=== PATIENT | female | born 1995 | race Caucasian/White ===

== ENCOUNTER 2024-09-22 01:09 | Emergency (ER) | payer BC, MEDICAID ==
[~2024-09-22] VITALS: Ht 154.9 cm; Wt 65.2 kg
[2024-09-22 01:50] VITALS: O2SAT 100
[2024-09-22] MEDS ORDERED: ACETAMINOPHEN 500MG TABLET PO ONE (02:30)
[2024-09-22 02:52] LABS: BASOPHILS % 0.3 % (0.0-2.0); EOSINOPHILS % 0.6 % (0.0-5.0); HEMATOCRIT. 39.8 % (36.0-48.0); HEMOGLOBIN. 13.5 g/dL (12.0-16.0); LYMPHOCYTES % 25.1 % (20.0-50.0); MEAN PLATELET VOLUME 9.0 fl (7.4-10.4); MONOCYTES % 8.8 % (2.0-8.0); NEUTROPHILS % 65.2 % (40.0-76.0); PLATELET 222 x1000/uL (130-400); RED BLOOD CELL COUNT 4.62 mill/uL (4.2-5.4); RED CELL DISTRIBUTION WIDTH 12.8 % (11.6-14.6)
[2024-09-22 03:06] LABS: CREATININE 1.0 mg/dL (0.6-1.0); UREA NITROGEN BLOOD 18 mg/dL (9-23)
[2024-09-22 03:07] LABS: B-HCG QUANTITATIVE 217 mIU/mL (<6)
[2024-09-22 03:08] LABS: ASPARTATE AMINOTRANSFERASE 15 IU/L (<34); BILIRUBIN DIRECT 0.1 mg/dL (<=3.0)
[2024-09-22 03:09] LABS: BILIRUBIN TOTAL 0.5 mg/dL (0.1-1.0); PROTEIN TOTAL 7.3 g/dL (6.0-8.3)
[2024-09-22] MEDS ORDERED: TOPUD MT (04:28)
[2024-09-22 04:41] LABS: CLARITY URINE CLEAR (CLEAR); COLOR URINE YELLOW (YELLOW); GLUCOSE URINE NEGATIVE (NEGATIVE); KETONES URINE NEGATIVE (NEGATIVE); LEUKOCYTE ESTERASE URINE NEGATIVE (NEGATIVE); NITRITE URINE NEGATIVE (NEGATIVE); OCCULT BLOOD URINE 3+ (NEGATIVE); PH URINE 5.5 (4.5-8.0); PROTEIN URINE TRACE (NEGATIVE); SPECIFIC GRAVITY URINE 1.030 (1.005-1.030); UROBILINOGEN URINE 0.2 E.U./dL (0.2-1.0)
[2024-09-22 05:03] VITALS: BP 125/58; PULSE 75; RESP 15; TEMP 36.6; O2SAT 100
[2024-09-22] MEDS: ACETAMINOPHEN 500MG TABLET PO NR (05:04)
[2024-09-22 05:06] LABS: SQUAMOUS EPITHELIAL CELL URINE 1+ /lpf (RARE/1+)
[2024-09-22 05:17] LABS: RBC URINE 0-2 /hpf (0-2); WBC URINE 0-2 /hpf (0-2)
[2024-09-22 05:18] LABS: BACTERIA URINE NONE SEEN
== END 2024-09-22 05:06 | disposition home or self-care (01) ==
LOC: ER 01:09
DX: O20.0 Threatened abortion (principal); Z79.899 Other long term (current) drug therapy; Z3A.01 Less than 8 weeks gestation of pregnancy
CPT/HCPCS: 36415; 76801; 80048; 80076; 81003; 84702; 85025; 86850; 86900; 99284

== ENCOUNTER 2024-09-26 19:10 | Emergency (ER) | payer MEDICAID ==
[~2024-09-26] VITALS: Ht 162.6 cm; Wt 54.0 kg
[~2024-09-26 19:10] MED LIST: TOPUD MT
[2024-09-26 19:28] VITALS: TEMP 36.8; O2SAT 98
[2024-09-26 21:20] VITALS: BP 121/73; PULSE 82; RESP 17; O2SAT 98
== END 2024-09-26 21:21 | disposition home or self-care (01) ==
LOC: ER 19:10
DX: O03.4 Incomplete spontaneous abortion without complication (principal); Z3A.01 Less than 8 weeks gestation of pregnancy
CPT/HCPCS: 36415; 84702; 99283